=== PATIENT | female | born 1960 | race Caucasian/White ===

== ENCOUNTER 2021-10-04 21:26 | Emergency (ER) | payer OTHER, MEDICAID, SELFPAY ==
[2021-10-04 21:31] VITALS: BP 174/87; PULSE 104; RESP 18; TEMP 36.8; O2SAT 99
--- NOTE | 2021-10-04 21:44 | PC.NURSE ---
Reports bowel movements have been ribbon like recently
--- NOTE | 2021-10-04 21:47 | ED.ABDPAIN ---
HPI - Abdominal Pain General Chief Complaint: Abdominal Pain Stated Complaint: ABD PAIN Time Seen by Provider: 10/04/21 21:46 Source: patient Mode of arrival: Ambulatory History of Present Illness HPI narrative: 61-year-old female nonsmoker with longstanding history of difficulty with bowel movements presents with her significant other and a chief complaint of trouble with constipation over the past few months but significantly worsening symptoms over the past few days. She states that she would seen and evaluated by her primary care office a few days ago and had imaging suggesting a large stool burden in the possibility of a bowel obstruction. She has tried multiple attempts at home to get her bowels moving including enemas and lactulose with minimal to no relief. Prior to her worsening symptoms she had been passing very hard and small stools. She denies any recent medication change otherwise, no dietary change. No vomiting. She has had no fever or chills. Related Data Previous Rx's Medication Instructions Recorded benzonatate 100 mg capsule 100 mg PO TID PRN #30 cap 02/11/18 (Tesmike Cunningham) ipratropium 20 mcg-albuterol 100 1 puff INH QID PRN #1 inh 02/11/18 mcg/actuation mist for inhalation (Combivent Respimat) Allergies Allergy/AdvReac Type Severity Reaction Status Date / Time meperidine [From DEMEROL] Allergy Intermediate hypotension Unverified 02/28/18 12:52 Review of Systems Review of Systems Narrative: GENERAL: Denies chills, fatigue, malaise, fever, sweats. HEENT: Denies sinus pain, ear pain, sore throat, difficulty swallowing, dizziness. RESPIRATORY: Denies dyspnea, cough, wheezing, hemoptysis, sputum. CARDIOVASCULAR: Denies chest pain, palpitations, orthopnea, edema, GASTROINTESTINAL: See HPI. : Denies dysuria, frequency, incontinence, hematuria, urinary retention. MUSCULOSKELETAL: denies weakness, joint pain, or bony pain SKIN: Denies rash, skin lesions, or other NEUROLOGIC: Denies weakness, headache, numbness, change in speech, confusion, seizures, incoordination. PSYCHIATRIC: No concerning psychosocial issues. 12 point review of systems is negative except for those stated above Exam Narrative Exam Narrative: GENERAL: [61] year old patient appears stated age. Well-developed patient, in mild distress. HEAD: Atraumatic. Normocephalic. EYES: Pupils equal round and reactive. Extraocular motions intact. No scleral icterus. No injection or drainage. ENT: Nose without bleeding, purulent drainage. Throat without erythema, tonsillar hypertrophy or exudate. Airway patent. NECK: Trachea midline. Non tender CARDIOVASCULAR: Regular rate and rhythm without murmurs, gallops, or rubs. RESPIRATORY: Clear to auscultation. Breath sounds equal bilaterally. No wheezes, rales, or rhonchi. GASTROINTESTINAL: Abdomen soft, non-tender, nondistended. Decreased but present sounds throughout EXTREMITIES: No edema or joint tenderness. BACK: Nontender without deformity or crepitance. No flank tenderness. NEURO: AOx3. SKIN: No rash or erythema of visible areas Initial Vital Signs Initial Vital Signs: Vital Signs Temperature 98.3 F 10/04/21 21:31 Pulse Rate 104 H 10/04/21 21:31 Respiratory Rate 18 10/04/21 21:31 Blood Pressure 174/87 H 10/04/21 21:31 Pulse Oximetry 99 10/04/21 21:31 Course Orders Ordered: ED Orders 10/04/21 21:36 Complete Blood Count AUTO DIFF Stat Comprehensive Metabolic Panel Stat Lipase Stat 10/04/21 22:12 XR acute abdomen series Stat 10/04/21 22:47 CT abdomen pelvis w con Stat 10/04/21 23:03 Urine Microscopic Stat Discontinued Medications Bisacodyl (Bisacodyl 10 Mg Supp) 10 mg MS NOW ONE Stop: 10/04/21 23:43 Last Admin: 10/04/21 23:50 Dose: 10 mg Documented by: YONI Sodium Chloride (Normal Saline 0.9%) 1,000 mls @ 1,000 mls/hr IV BOLUS ONE Stop: 10/04/21 23:46 Last Infusion: 10/05/21 00:25 Dose: 0 mls/hr Documented by: Admin: 10/04/21 23:05 Dose: 1,000 mls/hr Documented by: YONI Vital Signs Vital signs: Vital Signs - 8 hr 10/04/21 21:31 10/05/21 01:01 Temperature 98.3 F Pulse Rate 104 H 69 Respiratory Rate 18 16 Blood Pressure 174/87 H 164/77 H Pulse Oximetry 99 98 MDM - Abdominal Pain Lab Data Result diagrams: 10/04/21 21:36 10/04/21 21:36 Labs: Lab Results 10/04/21 10/04/21 10/04/21 Range/Units 21:36 21:36 23:03 WBC 8.0 (4.5-11.0) X10^3/uL RBC 4.24 (4.0-5.2) X10^6/uL Hgb 13.6 (12.0-16.0) g/dL Hct 39.7 (36-46) % MCV 93.7 (80-100) fL MCH 32.0 (26-34) PG MCHC 34.2 (30-36) % RDW 12.2 (11.6-14.8) % Plt Count 364 (150-400) X10^3/uL Neut % (Auto) 52.1 (50-75) % Lymph % (Auto) 30.7 (25-40) % [place] % (Auto) 11.0 (3-14) % Eos % (Auto) 5.6 H (2-4) % Baso % (Auto) 0.6 (0-2) % Neut # (Auto) 4100 (7439-6608) /uL Lymph # (Auto) 2400 (6745-1435) /uL [place] # (Auto) 900 (0-900) /uL Eos # (Auto) 400 (0-450) /uL Baso # (Auto) 0 (0-100) /uL Sodium 138 (137-145) mmol/L Potassium 3.3 L (3.4-5.1) mmol/L Chloride 103 (98-107) mmol/L Carbon Dioxide 29 (22-32) mmol/L BUN 11 (7-17) mg/dL Creatinine 0.88 (0.52-1.04) mg/dL Estimated GFR > 60.0 (>60) mL/min BUN/Creatinine Ratio 12.5 (6-22) Glucose 87 (80-110) mg/dL Calcium 8.7 (8.4-10.2) mg/dL Total Bilirubin 0.2 (0.2-1.3) mg/dL AST 36 (14-36) IU/L ALT 33 (<35) IU/L Alkaline Phosphatase 97 (38-126) U/L Total Protein 7.3 (6.3-8.2) g/dL Albumin 4.2 (3.5-5.0) g/dL Globulin 3.1 (1.7-4.1) g/dL Albumin/Globulin Ratio 1.4 (1.0-2.8) Lipase 80 (23-300) U/L Urine RBC 0-1/hpf (0-5/HPF) Urine WBC None seen (0-5/HPF) Ur Squamous Epith Cells 0-1 /hpf (0-5/HPF) Urine Bacteria Occasional (0-1) (None) Ur Culture Indicated? Cult not indicated Point of care testing: Urine Dip Bedside Urine Glucose Negative Bedside Urine Bilirubin - Negative Bedside Urine Ketone - Negative Urine Specific [place] 1.010 Bedside Urine Occult Blood + Bedside Urine pH 6.0 Bedside Urine Protein - Negative Bedside Urine Urobilinogen - Negative Bedside Urine Nitrite - Negative Bedside Urine Leukocytes - Negative Esterase Imaging Data Abdominal x-ray: Radiologist's Impression: Gladys Grant 61 F [address] [id number] ReportSigned Patient: Gladys Grant AMR#: [id number]: [id number]:[id number]/Sex: 61 / FDate of Service: 10/04/21Loc: EDAccession Number: [id number] Procedure: XR acute abdomen series Ordering Provider: Vincent Trevino D.O. PROCEDURE: XR ACUTE ABDOMEN SERIES INDICATIONS: abdominal pain TECHNIQUE: One view chest and two views of the abdomen were acquired. COMPARISON: None. FINDINGS: Surgical changes and devices: None. Chest: Lungs are clear. Heart size is normal. No pleural effusions. No pneumoperitoneum. Abdomen: Bowel gas pattern is normal. No suspicious calcifications. Visualized solid organ contours appear normal. Bones: No suspicious bony lesions. IMPRESSION: No acute process. Dictated by: Julio Siddiqui M.D. on 10/04/2021 at 22:25 Approved by: Julio Siddiqui M.D. on 10/04/2021 at 22:25 CT scan - abdomen/pelvis: Radiologist's Impression: [address] [id number] Scan ReportSigned Patient: Gladys Grant AMR#: [id number]: [id number]:[id number]/Sex: 61 / FDate of Service: 10/04/21Loc: EDAccession Number: [id number] Procedure: CT abdomen pelvis w con Ordering Provider: Vincent Trevino D.O. PROCEDURE: CT ABDOMEN PELVIS W CON INDICATIONS: severe abdominal pain TECHNIQUE: After the administration of intravenous contrast, axial sections acquired from the lung bases to the pubic symphysis. Coronal and sagittal reformats were performed. For radiation dose reduction, the following was used: automated exposure control, adjustment of mA and/or kV according to patient size. COMPARISON: None. FINDINGS: Image quality: Excellent. Lung bases: Unremarkable. Heart: No significant findings. ABDOMEN: Liver: Unremarkable. Gallbladder: Unremarkable. Biliary ducts: Unremarkable. Pancreas: Unremarkable. Spleen: Unremarkable. Adrenal Glands: Unremarkable. Kidneys and Ureters: Unremarkable. Stomach and Bowel: Stomach, small bowel loops, and colon are unremarkable. Peritoneum: No abnormal intraperitoneal fluid. No free air. Ventral Wall: No hernias. Abdominal Nodes: No retroperitoneal or mesenteric adenopathy by size criteria. Vessels: Aorta and inferior vena cava are normal in size. PELVIS: Pelvic Organs: Unremarkable. Bladder: Unremarkable. Pelvic Nodes: No enlarged lymph nodes. Miscellaneous: No hernias are seen. Bones: Unremarkable. IMPRESSION: 1. No acute process. 2. Appendix not seen. No evidence of appendicitis. Dictated by: Julio Siddiqui M.D. on 10/04/2021 at 23:33 Approved by: Julio Siddiqui M.D. on 10/04/2021 at 23:35 [facility] Narrative Medical decision making narrative: Patient presents with abdominal discomfort and chronic constipation. She has attempted [id number] options at home with minimal relief. Her history and physical exam are very reassuring as are vitals and labs. X-ray shows no obstructive process but given worsening symptoms over the past week or so and discussion with PCP about advanced imaging we elected to perform CT of abdomen and pelvis. There were no significant findings here. Dulcolax suppository was given without relief. We discussed options including an MT here or various oeqe-myy-qlwojlo options at home. Patient would prefer to go home. Return precautions given and questions answered to her apparent satisfaction Discharge Plan Departure Patient Disposition: Home Clinical Impression: Constipation Qualifiers: Constipation type: unspecified constipation type Qualified Code(s): K59.00 - Constipation, unspecified Instructions: DI for Constipation Activity Restrictions/Additional Instructions: *You have been diagnosed with [ abdominal pain due to constipation ] *What to do: *Take over the counter medications as directed: 1. Metamucil - is a bulk forming laxative and adds fiber 2. Lactulose - softens your stool 3. Dulcolax suppository - stimulates your bowels 4. Magnesium Citrate is the laxative surgeons and GI doctors give you to clean you out before colonoscopies. This is also ieyu-xiu-swvbclo and it is recommended that he take half a bottle initially and may repeat at about the 4 hour pete. This may cause your abdomen to feel crampy and bloated *Follow up with your primary care provider in 2-3 days, call for appointment *Return to ER if you should have any new, worsening or concerning symptoms *Drink plenty of water and eat foods high in fiber *Stay as active as you can as this helps move your bowels as well Prescriptions: No Action benzonatate [Tessalon Perles] 100 MG capsule 100 mg PO TID PRNQty: 30 RF: 0 ipratropium-albuterol [Combivent Respimat] 4 GM mist 1 puff INH QID PRNQty: 1 RF: 0
[2021-10-04 22:07] LABS: Add Manual Diff / Slide Review NO; Basophils Absolute Auto 0 /uL (0-100); Basophils Percent Auto 0.6 % (0-2); Eosinophils Absolute Auto 400 /uL (0-450); Eosinophils Percent Auto 5.6 % (2-4); Hematocrit 39.7 % (36-46); Hemoglobin 13.6 g/dL (12.0-16.0); Lymphocytes Absolute Auto 2400 /uL (1100-4500); Lymphocytes Percent Auto 30.7 % (25-40); Mean Corpuscular HGB Conc 34.2 % (30-36); Mean Corpuscular Volume 93.7 fL (80-100); Monocytes Absolute Auto 900 /uL (0-900); Neutrophils Absolute Auto 4100 /uL (1500-7000); Neutrophils Percent Auto 52.1 % (50-75); Platelet Count 364 X10^3/uL (150-400); Red Blood Cell Count 4.24 X10^6/uL (4.0-5.2); Red Cell Distribution Width 12.2 % (11.6-14.8)
--- NOTE | 2021-10-04 22:12 | DI.RAD.S_ITS ---
PROCEDURE: XR ACUTE ABDOMEN SERIES INDICATIONS: abdominal pain TECHNIQUE: One view chest and two views of the abdomen were acquired. COMPARISON: None. FINDINGS: Surgical changes and devices: None. Chest: Lungs are clear. Heart size is normal. No pleural effusions. No pneumoperitoneum. Abdomen: Bowel gas pattern is normal. No suspicious calcifications. Visualized solid organ contours appear normal. Bones: No suspicious bony lesions. IMPRESSION: No acute process. Dictated by: Julio Siddiqui M.D. on 10/04/2021 at 22:25 Approved by: Julio Siddiqui M.D. on 10/04/2021 at 22:25
[2021-10-04 22:16] LABS: Alanine Aminotransferase 33 IU/L (<35); Albumin 4.2 g/dL (3.5-5.0); Albumin Globulin Ratio 1.4 (1.0-2.8); Alkaline Phosphatase 97 U/L (38-126); Aspartate Aminotransferase 36 IU/L (14-36); BUN Creatinine Ratio 12.5 (6-22); Bilirubin Total 0.2 mg/dL (0.2-1.3); Blood Urea Nitrogen 11 mg/dL (7-17); Calcium 8.7 mg/dL (8.4-10.2); Carbon Dioxide 29 mmol/L (22-32); Chloride 103 mmol/L (98-107); Estimated Glomerular Filt Rate > 60.0 mL/min (>60); Globulin 3.1 g/dL (1.7-4.1); Glucose 87 mg/dL (80-110); HEMOLYSIS < 15 (0-50); Lipase 80 U/L (23-300); Potassium 3.3 mmol/L (3.4-5.1); Sodium 138 mmol/L (137-145); Total Protein 7.3 g/dL (6.3-8.2)
--- NOTE | 2021-10-04 22:47 | DI.CT.S_ITS ---
PROCEDURE: CT ABDOMEN PELVIS W CON INDICATIONS: severe abdominal pain TECHNIQUE: After the administration of intravenous contrast, axial sections acquired from the lung bases to the pubic symphysis. Coronal and sagittal reformats were performed. For radiation dose reduction, the following was used: automated exposure control, adjustment of mA and/or kV according to patient size. COMPARISON: None. FINDINGS: Image quality: Excellent. Lung bases: Unremarkable. Heart: No significant findings. ABDOMEN: Liver: Unremarkable. Gallbladder: Unremarkable. Biliary ducts: Unremarkable. Pancreas: Unremarkable. Spleen: Unremarkable. Adrenal Glands: Unremarkable. Kidneys and Ureters: Unremarkable. Stomach and Bowel: Stomach, small bowel loops, and colon are unremarkable. Peritoneum: No abnormal intraperitoneal fluid. No free air. Ventral Wall: No hernias. Abdominal Nodes: No retroperitoneal or mesenteric adenopathy by size criteria. Vessels: Aorta and inferior vena cava are normal in size. PELVIS: Pelvic Organs: Unremarkable. Bladder: Unremarkable. Pelvic Nodes: No enlarged lymph nodes. Miscellaneous: No hernias are seen. Bones: Unremarkable. IMPRESSION: 1. No acute process. 2. Appendix not seen. No evidence of appendicitis. Dictated by: Julio Siddiqui M.D. on 10/04/2021 at 23:33 Approved by: Julio Siddiqui M.D. on 10/04/2021 at 23:35
[2021-10-04] MEDS: SODIUM CHLORIDE 0.9% 1,000 ML 1000 ML IV (23:05)
[2021-10-04 23:23] LABS: Bacteria Urine Occasional (0-1); Culture Indicated Urine Cult Not Indicated; RBC Urine 0-1/HPF (0-5/HPF); Squamous Epithelial Cell Urine 0-1 /HPF (0-5/HPF); WBC Urine None Seen (0-5/HPF)
[2021-10-04] MEDS: BISACODYL 10 MG SUPP PR (23:50)
[2021-10-05 01:01] VITALS: BP 164/77; PULSE 69; RESP 16; O2SAT 98
== END 2021-10-05 01:01 | disposition home or self-care (01) ==
PROVIDERS: Emergency Provider Emergency Medicine
DX: K59.00 Constipation, unspecified (principal)
CPT/HCPCS: 36415; 74022; 74177; 80053; 81003; 81015; 83690; 85025; 96360; 99284; Q9967

== ENCOUNTER 2021-10-05 06:20 | Emergency (ER) | payer OTHER, MEDICAID, SELFPAY ==
[2021-10-05 07:30] VITALS: BP 165/71; PULSE 92; RESP 18; TEMP 36.5; O2SAT 98
--- NOTE | 2021-10-05 08:41 | ED.GENADULT ---
HPI - General Adult General Stated complaint: constipation x5 days Time Seen by Provider: 10/05/21 07:41 Source: patient Mode of arrival: Ambulatory History of Present Illness HPI narrative: Patient is a 61-year-old female. Was seen here in the emergency department less than 12 hours ago for abdominal discomfort. She has a history of chronic constipation. Here in the emergency department on her last visit she had x-rays and labs and a CT scan. There was no surgical pathology noted. Was given instructions on using iqbq-ugp-ytedvul laxatives and stool softeners. Patient went home. She stated that over the time that she was at home she felt like she needed have a bowel movement. She went and sat on the toilet but then had quite a bit of discomfort. She stated that she became very anxious of this. [place] like her ?insides were coming out ?so she came back to the emergency department for evaluation. Related Data Previous Rx's Medication Instructions Recorded benzonatate 100 mg capsule 100 mg PO TID PRN #30 cap 02/11/18 (Tesmike Cunningham) ipratropium 20 mcg-albuterol 100 1 puff INH QID PRN #1 inh 02/11/18 mcg/actuation mist for inhalation (Combivent Respimat) lactulose 10 gram/15 mL oral 10 g (15 mL) PO DAILY PRN #237 ml 10/05/21 solution lorazepam 0.5 mg tablet (Ativan) 0.5 mg PO DAILY PRN #7 tab 10/05/21 Allergies Allergy/AdvReac Type Severity Reaction Status Date / Time meperidine [From DEMEROL] Allergy Intermediate hypotension Unverified 02/28/18 12:52 Review of Systems Constitutional Constitutional: Reports system reviewed and no additional complaints, except as documented Cardiovascular Cardiovascular: Reports system reviewed and no additional complaints, except as documented Respiratory Respiratory: Reports system reviewed and no additional complaints, except as documented Gastrointestinal Gastrointestinal: Reports as per HPI and Reports system reviewed and no additional complaints, except as documented Musculoskeletal Musculoskeletal: Reports system reviewed and no additional complaints, except as documented Integumentary/Breasts Skin/Breast: Reports system reviewed and no additional complaints, except as documented Exam Const General: cooperative and comfortable HENMT Head: normal to inspection and normocephalic Resp Effort & Inspection: normal respiratory effort GI Inspection: normal to inspection Palpation: soft Rectal Exam: No fecal impaction, No hemorrhoids and No tenderness Skin General: no rashes or lesions noted Neuro General: patient alert, patient awake and moves all extremities Psych Appearance: grossly normal Medical Decision Making MDM Narrative Medical decision making narrative: Patient did have an extensive workup last evening. I do not feel the need to repeat this. Rectal exam does not show any signs of rectal prolapse. There is no fecal impaction of the rectum. There are no hemorrhoids noted. Patient does have a benign abdominal exam. I reiterated things that she can try at home to try to help with the symptoms. Patient was given return precautions. She expressed understanding and agreement. Discharge Plan Departure Patient Disposition: Home Clinical Impression: Constipation Activity Restrictions/Additional Instructions: I recommend that you try a laxative such as MiraLax or magnesium citrate. You can use them as directed. Also recommend you increase your fluid intake. You can purchase Fleet enemas oqkw-tnq-[id number] however you may want to wait until there is actually stool in your rectum to use these. Prescriptions: New lorazepam [Ativan] 0.5 mg tablet 0.5 mg PO DAILY PRN (Reason: anxiety) Qty: 7 0RF lactulose 10 gram/15 mL solution 10 g PO DAILY PRN (Reason: constipation) Qty: 237 0RF No Action benzonatate [Tessalon Perles] 100 MG capsule 100 mg PO TID PRNQty: 30 0RF ipratropium-albuterol [Combivent Respimat] 4 GM mist 1 puff INH QID PRNQty: 1 0RF
--- NOTE | 2021-10-05 09:06 | PC.NURSE ---
pt stated she feels bloated.
[2021-10-05 09:07] VITALS: BP 155/74; PULSE 88; RESP 18; O2SAT 94
== END 2021-10-05 09:07 | disposition home or self-care (01) ==
PROVIDERS: Emergency Provider Emergency Medicine
DX: K59.00 Constipation, unspecified (principal)
CPT/HCPCS: 99281

== ENCOUNTER → 2021-10-29 06:52 | Outpatient (CLI) | payer OTHER, MEDICAID, SELFPAY ==
--- NOTE | 2021-10-29 | DI.US.S_ITS ---
PROCEDURE: US ABDOMEN COMPLETE INDICATIONS: PAIN TECHNIQUE: Real-time scanning was performed of the abdominal and retroperitoneal organs, with image documentation. COMPARISON: [facility], CT, CT ABDOMEN PELVIS W CON, 10/04/2021, 23:08. FINDINGS: Liver: Liver is normal in size and homogeneous in echotexture. Gallbladder: No gallbladder wall thickening, pericholecystic fluid, or shadowing gallstones. Biliary ducts: Intrahepatic bile ducts are non-dilated. Extrahepatic bile duct caliber measures 5.9 mm. Normal is 6-7 mm or less in diameter, or 10 mm or less post-cholecystectomy. Pancreas: Visualized portions of the pancreas are sonographically normal. Spleen: Spleen is normal in size and homogeneous in echotexture. Kidneys: Kidneys are normal in size and echotexture. Right kidney measures 8.7 cm long; left kidney measures 8.1 cm long. No hydronephrosis or nephrolithiasis. No solid masses. Aorta: Visualized aorta is normal in caliber at less than 3 cm. Iliacs: Proximal common iliac arteries are normal in caliber at less than 2.5 cm. IVC: Intrahepatic inferior vena cava is patent. Miscellaneous: No free abdominal fluid. IMPRESSION: No significant abnormality. Dictated by: Trevon Cabrera M.D. on 10/29/2021 at 8:08 Approved by: Trevon Cabrera M.D. on 10/29/2021 at 8:11
== END ==
PROVIDERS: PCP Family Medicine; Referring Provider Nurse Practitioner Family; Visit Provider Nurse Practitioner Family
DX: R14.0 Abdominal distension (gaseous); R10.9 Unspecified abdominal pain
CPT/HCPCS: 76700

== ENCOUNTER → 2025-10-30 17:26 | Outpatient (CLI) | payer MEDICARE, OTHER, SELFPAY | PROVIDERS: PCP Family Medicine; Referring Provider Physician Assistant; Visit Provider Physician Assistant | DX: R10.13 Epigastric pain (principal); R19.5 Other fecal abnormalities | CPT/HCPCS: 36415; 86140 ==

== ENCOUNTER → 2025-10-31 09:45 | Outpatient (CLI) | payer MEDICARE, OTHER, SELFPAY ==
[2025-11-03 14:12] LABS: Calprotectin, Stool 37 ug/g (0-120)
== END ==
PROVIDERS: PCP Family Medicine; Referring Provider Family Medicine; Visit Provider Physician Assistant
DX: R10.13 Epigastric pain (principal); R19.5 Other fecal abnormalities
CPT/HCPCS: 83993